=== PATIENT | female | born 2000 | race Hispanic/Latino ===

== ENCOUNTER 2024-03-21 08:45 | Emergency (ER) | payer SELFPAY ==
[~2024-03-21] VITALS: Ht 152.4 cm; Wt 51.7 kg
[2024-03-21 09:19] VITALS: PULSE 111; RESP 16; TEMP 98.2; O2SAT 100
== END 2024-03-21 10:06 | disposition home or self-care (01) ==
LOC: ER 08:49
DX: R00.2 Palpitations (principal); R11.2 Nausea with vomiting, unspecified; R94.31 Abnormal electrocardiogram [ECG] [EKG]; F17.290 Nicotine dependence, other tobacco product, uncomplicated
CPT/HCPCS: 93005; 99282